=== PATIENT | female | born 1940 | race Caucasian/White ===

== ENCOUNTER 2020-09-01 16:54 | Inpatient (IN) ==
[2020-09-01] MEDS ORDERED: METOCLOPRAMIDE HCL INJ 5 MG/ML 2 ML VIAL IV ONE (17:25)
[2020-09-01] MEDS ORDERED: diphenhydrAMINE 50 MG/ML VIAL IV STA (17:25)
[2020-09-01] MEDS ORDERED: KETOROLAC TROMETHAMINE 15 MG/ML VIAL IV ONE (17:25)
[2020-09-01 18:02] LABS: Basophils # (auto) 0.04 K/uL (0-0.2); Basophils % (auto) 0.6 %; Eosinophils # (auto) 0.15 K/uL (0-0.5); Eosinophils % (auto) 2.1 %; Hematocrit (blood only) 41.1 % (37-47); Hemoglobin 13.9 g/dL (12.0-16.0); Immature Granulocytes # (auto) 0.01 K/uL (0.00-0.02); Immature Granulocytes % (auto) 0.1 %; Lymphocytes % (auto) 29.2 %; Mean Corpuscular Hgb Conc 33.8 g/dL (32-36); Mean Corpuscular Volume 94.7 fL (80-100); Mean Platelet Volume 9.1 fL (7.4-10.4); Monocytes # (auto) 0.57 K/uL (0.11-0.59); Monocytes % (auto) 7.9 %; Neutrophils # (auto) 4.31 K/uL (1.4-6.5); Neutrophils % (auto) 60.1 %; Platelet Count 285 K/uL (130-400); RDW Standard Deviation 45.5 fL (36.4-46.3); Red Blood Count 4.34 M/uL (4.2-5.4); White Blood Count 7.18 K/uL (4.8-10.8)
[2020-09-01 18:23] LABS: Alanine Aminotransferase 21 U/L (12-78); Albumin Level 4.1 gm/dl (3.4-5.0); Aspartate Aminotransferase 22 U/L (15-37); BUN Creatinine Ratio 13.8 (10-20); Blood Urea Nitrogen 13 mg/dl (7-18); Calcium 10.6 mg/dl (8.5-10.1); Carbon Dioxide 28 mmol/L (21-32); Chloride 108 mmol/L (98-107); Est GFR (African American) 67.3; Glucose 106 mg/dl (70-99); Magnesium 2.1 mg/dl (1.8-2.4); Potassium 4.6 mmol/L (3.5-5.1); Sodium 140 mmol/L (136-145)
[2020-09-01 18:33] LABS: Alkaline Phosphatase 93 U/L (45-117); Bilirubin,Total 0.7 mg/dl (0.2-1); Creatine Kinase 82 U/L (26-192); Globulin 4.2 gm/dl (2.5-4.0); Total Protein 8.3 gm/dl (6.4-8.2); Troponin I < 0.015 ng/ml (0-0.045)
--- NOTE | 2020-09-01 18:41 | CT Scan Report ---
HEAD CT NONCONTRAST CT DOSE: 1311.06 mGy.cm HISTORY: Hypertension, Headache TECHNIQUE: Multiaxial CT images of the head were performed without the use of intravenous contrast. A utomated exposure control was utilized for this study. A dose lowering technique was utilized adheri ng to the principles of ALARA. Comparison: 08/28/2018. Findings: The paranasal sinuses and mastoid air cells are clear. The calvarium and skull base are int act. There is no mass, hematoma, midline shift, acute infarct. White matter hypodensity is nonspecifi c but suggestive of microvascular ischemic change. The ventricles and sulci demonstrate mild age-rela radha involutional changes. Impression: No significant change compared to the prior study. No acute intracranial abnormality. ACT 112: Negative or not required by law. Electronically signed by: Jhony Nunez M.D. 09/01/2020 6:39 PM
--- NOTE | 2020-09-01 18:44 | XRay Report ---
XR chest 1V portable HISTORY: Hypertension COMPARISON: None. FINDINGS: The lungs are clear. The cardiac silhouette is mildly enlarged. There is a mildly tortuous thoracic aorta. No pleural effusions. No pneumothorax. Mild S-shaped scoliosis of the thoracic spine. IMPRESSION: Mild cardiomegaly. Otherwise, no acute process within the chest. ACT 112: Negative or not required by law. Electronically signed by: Jhony Nunez M.D. 09/01/2020 6:43 PM
--- NOTE | 2020-09-01 18:55 | Emergency Department Note ---
Impression & Plan Headache, Hypertensive urgency ED Provider Note Provider: Shon Carreon MD DATE OF SERVICE: 09/01/2020 CHIEF COMPLAINT: Headache, hypertension HISTORY OF PRESENT ILLNESS: Patient is a 79-year-old female presenting today stating that over the past approximately 2 days she developed a mild to moderate posterior headache. Denies any trauma or syncope. States during this time she also noticed her blood pressures been elevated. Only is been very well controlled. 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 This afternoon around 1 PM took a dose of 12.5 mg hydrochlorothiazide prescribed by him given persis tent hypertension at home. Denies any dizziness or visual change. States has had some crampy pain in her bilateral arms right worse than left. Denies any falls or significant exertion here. Denies any chest pressure, palpitations, shortness of breath. Denies any abdominal issues. Denies significant new changes with some myalgias in her legs but has some chronic issues here. Patient denies new numbness or tingling in extremities or speech issues. Patient denies other new changes. REVIEW OF SYSTEMS: A total of 10 review of systems was obtained and negative except as stated above in the HPI. PAST MEDICAL HISTORY: As noted above MEDICATIONS: Reviewed home medications with the patient. SOCIAL HISTORY: lives at home with PHYSICAL EXAM: GENERAL: alert and oriented in no acute distress on stretcher Head: normocephalic and atraumatic EYES: No injection, discharge or icterus. PERRL NECK: Trachea midline. Supple. No significant posterior midline tenderness. LUNGS: Airway patent. No retractions. Breath sounds clear with good air entry bilaterally. HEART: Regular rate and rhythm. No chest wall tenderness ABDOMEN: Soft and non-tender, without guarding or rebound. SKIN: Acyanotic, warm, dry, without rashes EXTREMITIES: Without swelling, tenderness or deformity NEUROLOGICAL: No focal deficits. No aphasia. No facial droop or slurred speech. Normal strength and tone in the extremities. Sensation to gross touch normal. EK beats minute sinus rhythm first-degree AV block. No PVC or PAC. No acute ST segment elevation noted. QTc 466. CONTINUOUS CARDIAC MONITORING: was ordered and showed a heart rate of 80s and 90s bpm in sinus rhythm first-degree AV block Patient's laboratory studies and imaging reviewed. Differential includes Benign hypertension, hypertensive emergency, cardiovascular pathology, toxicologic, pheochromocytoma, electrolyte abnor mality, renal disease, endorgan damage, as well as other pathologies. IMPRESSION/MEDICAL DECISION MAKING: Patient presents with 2 days of worsening hypertension in the setting of increasing her blood pressure medicine. Now on twice the dose of her STONE and started on hydrochlorothiazide today. Patient denies chest pressure or shortness of breath. is acutely cardiac. EKG and troponin were complete as well as a chest x-ray without significant finding. Patient does complain of some pain more in her right forearm than her left and given that she has been on some regularly active medications electrolytes were checked without significant abnormality. Not with focal neurological deficit here. Denies any dizziness. No syncope or falls or trauma reported. Low suspicion for traumatic injury and also seems atypical for CVA. CT head completed an abundance of caution without acute findings here. Not having significant infective symptoms either. Do not believe this represents meningitis or other systemic infection. Given some Toradol, Reglan, Benadryl to see if this would help with her headache symptomatologies. Renal function is stable. No evidence of rhabdomyolysis with a normal CK. Thyroid function within normal limits. Question of some component of anxiety as contributing to her blood pressure elevation given her headache. Discussed these findings with the patient. Patient should limited dizziness at the medication but her headache had improved very much. Blood pressure is trended down somewhat patient was able to ambulate okay in the room and states after discussion of possible further observation here however the patient wished to go home. Discharge paperwork was prepared however when the nurse went to discharge her, her blood pressure had climbed to around 200 systolic again I was asked to reevaluate the patient. Discussed the patient again possible further observation given her significant hypertension as well as headache symptomatologies. Patient was quite anxious about how her blood pressure is doing and difficulty going home at this point. Discussed monitoring overnight and trial of additional blood pressure medicine. We will give a small dose of labetalol intravenously here and her blood pressure did improve with this. The hospitalist was contacted. Patient later returns Covid positive on routine screening testing. Unsure if this is truly positive or just residual she states she had Covid and symptoms consistent with Covid in April and recovered. DIAGNOSIS: Headache, hypertensive urgency DISPOSITION: Hospitalist will evaluate Patient was agreeable with this plan. Past Med/Surg History Medical History (Updated 09/01/20 @ 22:48 by Shon Carreon M.D.) Hypertension Family History (System 10/28/19 @ 14:39 by Shonda Zhu) Other Family history non-contributory Social History (System 10/28/19 @ 14:39 by Shonda Zhu) Smoking Status: Never smoker Feels Safe at Home: Yes Allergies Allergies Allergy/AdvReac Type Severity Reaction Status Date / Time celecoxib [From Celebrex] Allergy Severe Difficulty Verified 09/01/20 18:29 Breathing azithromycin AdvReac Severe Gastrointestinal Verified 09/01/20 18:29 Upset ranitidine AdvReac Intermediate Hives Verified 09/01/20 18:29 Home Meds Home Medications Medication Instructions Recorded Confirmed acetaminophen [Tylenol Extra 500 mg PO Q6H PRN 08/28/18 09/01/20 Strength] esomeprazole magnesium [Nexium 20 mg PO QAM PRN 08/28/18 09/01/20 24HR] ibuprofen [Advil] 200 mg PO Q6H PRN 08/28/18 09/01/20 levocetirizine [Xyzal] 5 mg PO QAM 08/28/18 09/01/20 ramipril 10 mg PO QAM 08/28/18 09/01/20 Results & Data (ED) Vital Signs Vital Signs - 24 hr 09/01/20 17:03 09/01/20 18:01 09/01/20 18:19 Temperature 36.6 C Temperature Source Temporal Artery Scan Pulse Rate 96 H 91 H Pulse Rate [Finger] Pulse Rate from SpO2 Sensor 90 Pulse Rhythm [Finger] Pulse Strength [Finger] Respiratory Rate 20 22 Respiratory Effort / Characteristics Non-Labored Respiratory Depth Normal Respiratory Pattern Blood Pressure 215/101 H 179/99 H Blood Pressure [Left Arm] Blood Pressure [Right Arm] Blood Pressure Mean 139 125 Blood Pressure Mean [Left Arm] Blood Pressure Mean [Right Arm] Blood Pressure Position [Left Arm] Blood Pressure Position [Right Arm] Pulse Oximetry 95 95 96 Oxygen Delivery Method Room Air Room Air Room Air Sepsis Recent Fever Within 48 Hours No Sepsis New/Unexplained Change in Mental Status N/A Sepsis Action Taken by Nursing No Action Required 09/01/20 18:34 09/01/20 19:00 09/01/20 19:11 Temperature Temperature Source Pulse Rate 89 78 80 Pulse Rate [Finger] Pulse Rate from SpO2 Sensor 89 79 79 Pulse Rhythm [Finger] Pulse Strength [Finger] Respiratory Rate 16 20 25 H Respiratory Effort / Characteristics Respiratory Depth Respiratory Pattern Blood Pressure 183/94 H 179/79 H 171/90 H Blood Pressure [Left Arm] Blood Pressure [Right Arm] Blood Pressure Mean 123 112 117 Blood Pressure Mean [Left Arm] Blood Pressure Mean [Right Arm] Blood Pressure Position [Left Arm] Blood Pressure Position [Right Arm] Pulse Oximetry 97 97 97 Oxygen Delivery Method Room Air Room Air Room Air Sepsis Recent Fever Within 48 Hours Sepsis New/Unexplained Change in Mental Status Sepsis Action Taken by Nursing 09/01/20 19:40 09/01/20 19:41 09/01/20 19:45 Temperature Temperature Source Pulse Rate 82 86 83 Pulse Rate [Finger] Pulse Rate from SpO2 Sensor 84 Pulse Rhythm [Finger] Pulse Strength [Finger] Respiratory Rate 18 17 13 Respiratory Effort / Characteristics Respiratory Depth Respiratory Pattern Blood Pressure 181/144 H 205/82 H 214/102 H Blood Pressure [Left Arm] Blood Pressure [Right Arm] Blood Pressure Mean 156 123 139 Blood Pressure Mean [Left Arm] Blood Pressure Mean [Right Arm] Blood Pressure Position [Left Arm] Blood Pressure Position [Right Arm] Pulse Oximetry 96 96 95 Oxygen Delivery Method Room Air Room Air Room Air Sepsis Recent Fever Within 48 Hours Sepsis New/Unexplained Change in Mental Status Sepsis Action Taken by Nursing 09/01/20 19:46 09/01/20 19:51 09/01/20 19:53 Temperature Temperature Source Pulse Rate 80 Pulse Rate [Finger] 86 Pulse Rate from SpO2 Sensor 80 Pulse Rhythm [Finger] Regular Pulse Strength [Finger] Normal Respiratory Rate 20 18 Respiratory Effort / Characteristics Non-Labored Spontaneous Respiratory Depth Normal Respiratory Pattern Regular Blood Pressure 188/131 H Blood Pressure [Left Arm] 205/82 H 192/104 H Blood Pressure [Right Arm] 214/102 H Blood Pressure Mean 150 Blood Pressure Mean [Left Arm] 123 133 Blood Pressure Mean [Right Arm] 139 Blood Pressure Position [Left Arm] Sitting Blood Pressure Position [Right Arm] Sitting Pulse Oximetry 96 96 Oxygen Delivery Method Room Air Sepsis Recent Fever Within 48 Hours Sepsis New/Unexplained Change in Mental Status Sepsis Action Taken by Nursing 09/01/20 20:00 09/01/20 20:17 09/01/20 20:29 Temperature Temperature Source Pulse Rate 77 78 72 Pulse Rate [Finger] Pulse Rate from SpO2 Sensor 77 79 72 Pulse Rhythm [Finger] Pulse Strength [Finger] Respiratory Rate 16 20 18 Respiratory Effort / Characteristics Non-Labored Spontaneous Respiratory Depth Normal Respiratory Pattern Regular Blood Pressure 175/97 H 182/114 H Blood Pressure [Left Arm] Blood Pressure [Right Arm] Blood Pressure Mean 123 136 Blood Pressure Mean [Left Arm] Blood Pressure Mean [Right Arm] Blood Pressure Position [Left Arm] Blood Pressure Position [Right Arm] Pulse Oximetry 97 97 97 Oxygen Delivery Method Sepsis Recent Fever Within 48 Hours Sepsis New/Unexplained Change in Mental Status Sepsis Action Taken by Nursing 09/01/20 20:30 09/01/20 20:42 09/01/20 20:46 Temperature Temperature Source Pulse Rate 72 67 66 Pulse Rate [Finger] Pulse Rate from SpO2 Sensor 71 67 65 Pulse Rhythm [Finger] Pulse Strength [Finger] Respiratory Rate 15 13 27 H Respiratory Effort / Characteristics Respiratory Depth Respiratory Pattern Blood Pressure 203/75 H 152/86 H 177/75 H Blood Pressure [Left Arm] Blood Pressure [Right Arm] Blood Pressure Mean 117 108 109 Blood Pressure Mean [Left Arm] Blood Pressure Mean [Right Arm] Blood Pressure Position [Left Arm] Blood Pressure Position [Right Arm] Pulse Oximetry 97 97 97 Oxygen Delivery Method Room Air Room Air Sepsis Recent Fever Within 48 Hours Sepsis New/Unexplained Change in Mental Status Sepsis Action Taken by Nursing 09/01/20 21:00 09/01/20 21:15 09/01/20 21:30 Temperature Temperature Source Pulse Rate 66 69 65 Pulse Rate [Finger] Pulse Rate from SpO2 Sensor 66 69 65 Pulse Rhythm [Finger] Pulse Strength [Finger] Respiratory Rate 16 19 16 Respiratory Effort / Characteristics Respiratory Depth Respiratory Pattern Blood Pressure 177/61 H 185/68 H 145/73 H Blood Pressure [Left Arm] Blood Pressure [Right Arm] Blood Pressure Mean 99 107 97 Blood Pressure Mean [Left Arm] Blood Pressure Mean [Right Arm] Blood Pressure Position [Left Arm] Blood Pressure Position [Right Arm] Pulse Oximetry 95 96 96 Oxygen Delivery Method Room Air Room Air Sepsis Recent Fever Within 48 Hours Sepsis New/Unexplained Change in Mental Status Sepsis Action Taken by Nursing Laboratory Data Result diagrams: 09/01/20 17:53 09/01/20 17:53 Lab Results 09/01/20 09/01/20 09/01/20 Range/Units 17:53 17:53 20:27 WBC 7.18 (4.8-10.8) K/uL RBC 4.34 (4.2-5.4) M/uL Hgb 13.9 (12.0-16.0) g/dL Hct 41.1 (37-47) % MCV 94.7 (80-100) fL MCH 32.0 (25-34) pg MCHC 33.8 (32-36) g/dL RDW Std Deviation 45.5 (36.4-46.3) fL RDW Coeff of Augustine 13.0 (11.5-14.5) % Plt Count 285 (130-400) K/uL MPV 9.1 (7.4-10.4) fL Immature Gran % (Auto) 0.1 % Neut % (Auto) 60.1 % Lymph % (Auto) 29.2 % Ness % (Auto) 7.9 % Eos % (Auto) 2.1 % Baso % (Auto) 0.6 % Neut # (Auto) 4.31 (1.4-6.5) K/uL Lymph # (Auto) 2.10 (1.2-3.4) K/uL Ness # (Auto) 0.57 (0.11-0.59) K/uL Eos # (Auto) 0.15 (0-0.5) K/uL Baso # (Auto) 0.04 (0-0.2) K/uL Immature Gran # (Auto) 0.01 (0.00-0.02) K/uL Sodium 140 (136-145) mmol/L Potassium 4.6 (3.5-5.1) mmol/L Chloride 108 H (98-107) mmol/L Carbon Dioxide 28 (21-32) mmol/L Anion Gap 4.0 (3-11) BUN 13 (7-18) mg/dl Creatinine 0.93 (0.6-1.2) mg/dl Est Cr Clr Drug Dosing 50.0 ml/min Est GFR ( Amer) 67.3 Est GFR (Non-Af Amer) 58.0 BUN/Creatinine Ratio 13.8 (10-20) Glucose 106 H (70-99) mg/dl Calcium 10.6 H (8.5-10.1) mg/dl Magnesium 2.1 (1.8-2.4) mg/dl Total Bilirubin 0.7 (0.2-1) mg/dl AST 22 (15-37) U/L ALT 21 (12-78) U/L Alkaline Phosphatase 93 (45-117) U/L Total Creatine Kinase 82 (26-192) U/L Troponin I < 0.015 (0-0.045) ng/ml Total Protein 8.3 H (6.4-8.2) gm/dl Albumin 4.1 (3.4-5.0) gm/dl Globulin 4.2 H (2.5-4.0) gm/dl Albumin/Globulin Ratio 1.0 (0.9-2) TSH 1.960 (0.300-4.500) uIu/ml Urine Color Yellow Urine Appearance Clear (Clear) Urine pH 6.0 (4.5-7.5) Ur Specific [place] 1.011 (1.000-1.030) Urine Protein Negative (Negative) Urine Glucose (UA) Negative (Negative) Urine Ketones Negative (Negative) Urine Blood 1+ H (Negative) Urine Nitrite Negative (Negative) Urine Bilirubin Negative (Negative) Urine Urobilinogen Negative (Negative) Ur Leukocyte Esterase Trace H (Negative) Urine WBC (Auto) 1-5 (0-5) /hpf Urine RBC (Auto) 0-4 (0-4) /hpf U Hyaline Cast (Auto) 1-5 (0-5) /lpf U Epithel Cells (Auto) >30 H (0-5) /lpf Urine Bacteria (Auto) Negative (Negative) COVID-19 Eval Order SARS-CoV-2 (PCR) (Negative) Influenza Type A (PCR) (Neg) Influenza Type B (PCR) (Neg) RSV (RT-PCR) (Neg) 09/01/20 09/01/20 Range/Units 20:44 20:44 WBC (4.8-10.8) K/uL RBC (4.2-5.4) M/uL Hgb (12.0-16.0) g/dL Hct (37-47) % MCV (80-100) fL MCH (25-34) pg MCHC (32-36) g/dL RDW Std Deviation (36.4-46.3) fL RDW Coeff of Augustine (11.5-14.5) % Plt Count (130-400) K/uL MPV (7.4-10.4) fL Immature Gran % (Auto) % Neut % (Auto) % Lymph % (Auto) % Ness % (Auto) % Eos % (Auto) % Baso % (Auto) % Neut # (Auto) (1.4-6.5) K/uL Lymph # (Auto) (1.2-3.4) K/uL Ness # (Auto) (0.11-0.59) K/uL Eos # (Auto) (0-0.5) K/uL Baso # (Auto) (0-0.2) K/uL Immature Gran # (Auto) (0.00-0.02) K/uL Sodium (136-145) mmol/L Potassium (3.5-5.1) mmol/L Chloride (98-107) mmol/L Carbon Dioxide (21-32) mmol/L Anion Gap (3-11) BUN (7-18) mg/dl Creatinine (0.6-1.2) mg/dl Est Cr Clr Drug Dosing ml/min Est GFR ( Amer) Est GFR (Non-Af Amer) BUN/Creatinine Ratio (10-20) Glucose (70-99) mg/dl Calcium (8.5-10.1) mg/dl Magnesium (1.8-2.4) mg/dl Total Bilirubin (0.2-1) mg/dl AST (15-37) U/L ALT (12-78) U/L Alkaline Phosphatase (45-117) U/L Total Creatine Kinase (26-192) U/L Troponin I (0-0.045) ng/ml Total Protein (6.4-8.2) gm/dl Albumin (3.4-5.0) gm/dl Globulin (2.5-4.0) gm/dl Albumin/Globulin Ratio (0.9-2) TSH (0.300-4.500) uIu/ml Urine Color Urine Appearance (Clear) Urine pH (4.5-7.5) Ur Specific [place] (1.000-1.030) Urine Protein (Negative) Urine Glucose (UA) (Negative) Urine Ketones (Negative) Urine Blood (Negative) Urine Nitrite (Negative) Urine Bilirubin (Negative) Urine Urobilinogen (Negative) Ur Leukocyte Esterase (Negative) Urine WBC (Auto) (0-5) /hpf Urine RBC (Auto) (0-4) /hpf U Hyaline Cast (Auto) (0-5) /lpf U Epithel Cells (Auto) (0-5) /lpf Urine Bacteria (Auto) (Negative) COVID-19 Eval Order CovFluRsv at [facility] SARS-CoV-2 (PCR) POSITIVE A* (Negative) Influenza Type A (PCR) Negative (Neg) Influenza Type B (PCR) Negative (Neg) RSV (RT-PCR) Negative (Neg) Administered Medications Discontinued Medications Diphenhydramine HCl (Diphenhydramine 50 Mg/Ml Vial) 25 mg IV NOW STA Stop: 09/01/20 17:26 Last Admin: 09/01/20 18:11 Dose: 25 mg Documented by: [id number] Ketorolac Tromethamine (Ketorolac Tromethamine 15 Mg/Ml Vial) 10 mg IV NOW ONE Stop: 09/01/20 17:26 Last Admin: 09/01/20 18:10 Dose: 10 mg Documented by: [id number] Labetalol HCl (Labetalol Hcl Iv 5 Mg/Ml 20ml) 10 mg IV NOW STA Stop: 09/01/20 19:59 Last Admin: 09/01/20 20:35 Dose: 10 mg Documented by: [id number] Cosigned by: [id number] Metoclopramide HCl (Metoclopramide Hcl Inj 5 Mg/Ml 2 Ml Vial) 5 mg IV ONE ONE Stop: 09/01/20 17:26 Last Admin: 09/01/20 18:09 Dose: 5 mg Documented by: [id number] Imaging Data Radiologist's Impression: Chest X-Ray 09/01/20 17:26 XR chest 1V portable HISTORY: Hypertension COMPARISON: None. FINDINGS: The lungs are clear. The cardiac silhouette is mildly enlarged. There is a mildly tortuous thoracic aorta. No pleural effusions. No pneumothorax. Mild S-shaped scoliosis of the thoracic spine. IMPRESSION: Mild cardiomegaly. Otherwise, no acute process within the chest. ACT 112: Negative or not required by law. Electronically signed by: Jhony Nunez M.D. 09/01/2020 6:[address] 09/01/20 17:[address] DOSE: 1311.06 mGy.cm HISTORY: Hypertension, Headache TECHNIQUE: Multiaxial CT images of the head were performed without the use of intravenous contrast. Automated exposure control was utilized for this study. A dose lowering technique was utilized adhering to the principles of ALARA. Comparison: 08/28/2018. Findings: The paranasal sinuses and mastoid air cells are clear. The calvarium and skull base are intact. There is no mass, hematoma, midline shift, acute infarct. White matter hypodensity is nonspecific but suggestive of microvascular ischemic change. The ventricles and sulci demonstrate mild age-related involuti onal changes. Impression: No significant change compared to the prior study. No acute intracranial abnormality. ACT 112: Negative or not required by law. Electronically signed by: Jhony Nunez M.D. 09/01/2020 6:39 PM Discharge Plan Visit Data Chief Complaint: Hypertension Stated Complaint: HIGH BLOOD PRESSURE ED Provider: Shon Carreon Discharge Problem: Headache, Hypertensive urgency Patient Disposition: Being Evaluated by Hospitalist Prescriptions Prescriptions: No Action acetaminophen [Tylenol Extra Strength] 500 mg Tablet 500 mg PO Q6H PRN (Reason: Pain) RF: 0 ibuprofen [Advil] 200 mg Tablet 200 mg PO Q6H PRN (Reason: Pain) RF: 0 ramipril 10 mg capsule 10 mg PO QAM RF: 0 levocetirizine [Xyzal] 5 mg Tablet 5 mg PO QAM RF: 0 Nexium 24HR 20 mg Tablet,Delayed Release (Dr/Ec) 20 mg PO QAM PRN (Reason: Heartburn) RF: 0 Referrals Referrals: Natalia Carlos DO [Primary Care Provider] - Discharge Problem: Headache Qualifiers: Headache type: unspecified Headache chronicity pattern: acute headache Intractability: intractable Qualified Code(s): R51.9 - Headache, unspecified
[2020-09-01] MEDS ORDERED: LABETALOL HCL IV 5 MG/ML 20ML IV STA (19:58)
[2020-09-01 20:48] LABS: Appearance Urine Clear (Clear); Bacteria Urine Automated Negative (Negative); Bilirubin Urine Negative (Negative); Blood Urine 1+ (Negative); Color Urine Yellow; Epithelial Cell Urine Auto >30 /lpf (0-5); Glucose Urine UA Negative (Negative); Ketones Urine Negative (Negative); Leukocyte Esterase Urine Trace (Negative); Nitrite Urine Negative (Negative); Protein Urine Negative (Negative); RBC Urine Automated 0-4 /hpf (0-4); Specific Gravity Urine 1.011 (1.000-1.030); Urobilinogen Urine Negative (Negative)
[2020-09-01 21:39] LABS: Influenza A virus by PCR Negative (Neg); Influenza B virus by PCR Negative (Neg); RSV by PCR Negative (Neg)
[2020-09-01 21:49] LABS: SARS CoV2 RNA(COVID-19) InHosp POSITIVE (Negative)
--- NOTE | 2020-09-02 00:09 | History and Physical Report ---
DATE OF ADMISSION: 09/01/2020 CHIEF COMPLAINT: Headaches and elevated blood pressure. HISTORY OF PRESENT ILLNESS: This is an 79-year-old female with past medical history significant for hyperlipidemia, hypertension, GERD, presents with ongoing headaches and elevated blood pressure. 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 But her blood pressure did not improve much and also last 2 days she is having headache in the back of the head, about moderate in severity, which prompted her to come to the ER. In the ER after getting Toradol, labetalol and Benadryl, her blood pressure is improved and her headaches are improved. But as ER started to discharge her home again the blood pressure went to 200, so we are called for admission. Currently, blood pressure is okay in 150s range, and her COVID test came back positive, though she is asymptomatic. She says she was diagnosed with COVID in April. At that time, she had loss of appetite, loss of sense of smell and taste and mild abdominal discomfort, but she did not really get sick. This time she does not know how she got it. She lives with her . She does not have any shortness of breath, no cough, no nausea, no vomiting, no loss of sense of smell or taste. Appetite is good. No blurred vision, no double vision, no earache, no runny nose, no sore throat, no difficulty swallowing. No abdominal pain. Normal bowel and bladder movements. Currently resting comfortably and hemodynamically stable. ALLERGIES: CELEBREX, AMOXICILLIN, ERYTHROMYCIN, ____ SULFA ANTIBIOTICS. PAST MEDICAL HISTORY: As mentioned above. PAST SURGICAL HISTORY: No surgical history in file. MEDICATIONS: The patient is on Tylenol 650 mg p.o. q. 4 hours p.r.n., omeprazole 20 mg p.o. a.m., ibuprofen 200 mg q. 6 hours p.r.n., levocetirizine 5 mg p.o. a.m., ramipril 10 mg p.o. a.m. FAMILY HISTORY: Significant for brother has arthritis, hypertension. Father had lung cancer and heart disease. Mother has diabetes, heart attack, hypertension. Daughter has Hodgkins disease. SOCIAL HISTORY: . No smoking, no alcohol, no drug use. REVIEW OF SYMPTOMS: As per HPI. Rest of the review of systems negative. PHYSICAL EXAMINATION: GENERAL: The patient is of moderate build, not in acute distress. VITAL SIGNS: Temperature 36.6, pulse 70, respiratory rate 14, blood pressure 154/95, oxygen 95% on room air. HEENT: Pupils equal, round, reactive to light. Oral mucosa moist. NECK: No JVD, no neck masses. CARDIOVASCULAR: S1, S2 heard, regular rate and rhythm, no murmur, no gallop. RESPIRATORY SYSTEM: Normal AP diameter. No accessory muscle use. No wheezing, no crackles. ABDOMEN: Soft, bowel sounds present, nontender. No distention. CENTRAL NERVOUS SYSTEM: Cranial nerves II-XII grossly intact. Nonfocal. EXTREMITIES: No edema, no erythema. LABORATORY DATA: WBC 7.1, hemoglobin 13.9, hematocrit 41.1, platelets 285. Sodium 140, potassium 4.6, chloride 108, CO2 28, BUN 13, creatinine 0.9, serum glucose 106, calcium 10.6, magnesium 2.1, total bilirubin 0.7, AST 22, ALT 21, alkaline phosphatase 93, total creatinine kinase 82. Troponin I less than 0.015. TSH 1.9. Urinalysis, leukocyte esterase. SARS-CoV-2 PCR positive. IMAGING: CT of the head, no acute findings. Chest x-ray, no acute process of the chest. EKG: Sinus rhythm with first degree AV block at the rate of 85, no acute ST changes seen. ASSESSMENT AND PLAN: This is an 79-year-old female who presents with ongoing headache and elevated blood pressure and found to be COVID positive. 1. Headache, elevated blood pressure. Headache going on for last 2 days, blood pressure is elevated since last 4 days. Outpatient ramipril dose was doubled and started on hydrochlorothiazide but was not getting better. Hypertensive urgency, we will place her on labetalol p.r.n. Continue home medications. CT of the head was okay. Pain control for headache. Consult cardiology in a.m. for further recommendations. 2. COVID positive, asymptomatic. She also had COVID in April. Saturating fine on room air. We will follow the inflammatory markers. 3. Headaches. possibly from Covid and HTN. Pain control. 4. Gastroesophageal reflux disease. Continue omeprazole. 5. Hyperlipidemia, currently not on any medications. 6. Deep venous thrombosis prophylaxis with Lovenox. 6. Disposition: Admit to tele floor. Expect to discharge home and follow with family doctor. Level 1 full code. 7. Mild hypercalcemia. We will follow the repeat labs in a.m. MTDD
[2020-09-02] MEDS ORDERED: ONDANSETRON INJ 2 MG/ML 2 ML VIAL IV PRN (00:17)
[2020-09-02] MEDS ORDERED: POLYETHYLENE (MIRALAX) 17 GM PACK PO PRN (00:17)
[2020-09-02] MEDS ORDERED: NITROGLYCERIN SL 0.4 MG/TAB TAB SL PRN (00:17)
[2020-09-02] MEDS ORDERED: PANTOprazole 40 MG TAB PO PRN (00:44)
[2020-09-02] MEDS: LABETALOL HCL IV 5 MG/ML 20ML IV PRN ×3 (01:29→11:29)
[2020-09-02 05:53] LABS: Basophils # (auto) 0.04 K/uL (0-0.2); Basophils % (auto) 0.7 %; Eosinophils # (auto) 0.14 K/uL (0-0.5); Eosinophils % (auto) 2.4 %; Hematocrit (blood only) 37.3 % (37-47); Hemoglobin 12.8 g/dL (12.0-16.0); Immature Granulocytes # (auto) 0.01 K/uL (0.00-0.02); Immature Granulocytes % (auto) 0.2 %; Lymphocytes # (auto) 1.86 K/uL (1.2-3.4); Lymphocytes % (auto) 31.3 %; Mean Corpuscular Hemoglobin 32.4 pg (25-34); Mean Corpuscular Hgb Conc 34.3 g/dL (32-36); Mean Corpuscular Volume 94.4 fL (80-100); Mean Platelet Volume 9.2 fL (7.4-10.4); Monocytes # (auto) 0.62 K/uL (0.11-0.59); Monocytes % (auto) 10.4 %; Neutrophils # (auto) 3.28 K/uL (1.4-6.5); Platelet Count 282 K/uL (130-400); RDW Coefficient of Variation 13.1 % (11.5-14.5); RDW Standard Deviation 45.7 fL (36.4-46.3); Red Blood Count 3.95 M/uL (4.2-5.4); White Blood Count 5.95 K/uL (4.8-10.8)
[2020-09-02 06:06] LABS: D Dimer 1720 ug/L FEU (0-500)
[2020-09-02] MEDS: ACETAMINOPHEN 325 MG TAB PO PRN ×2 (06:27→10:38)
[2020-09-02 06:43] LABS: Blood Urea Nitrogen 16 mg/dl (7-18); C Reactive Protein 0.72 mg/dl (0-0.29); Calcium 9.2 mg/dl (8.5-10.1); Carbon Dioxide 30 mmol/L (21-32); Chloride 109 mmol/L (98-107); Creatinine Clr Calc Pharmacy 52.6 ml/min; Est GFR (Non-African American) 64.7; Ferritin 103.7 ng/ml (8-388); Glucose 99 mg/dl (70-99); Potassium 3.7 mmol/L (3.5-5.1); Sodium 141 mmol/L (136-145); Troponin I < 0.015 ng/ml (0-0.045)
[2020-09-02] MEDS ORDERED: CETIRIZINE HCL 10 MG TABLET PO SCH (09:00)
[2020-09-02] MEDS ORDERED: ENALAPRIL MALEATE 10 MG TAB PO SCH (09:00)
[2020-09-02] MEDS ORDERED: ENOXAPARIN INJ 40 MG/0.4 ML SYR SQ SCH (09:00)
[2020-09-02] MEDS ORDERED: hydroCHLOROthiazide 25 MG TAB PO SCH (09:00)
--- NOTE | 2020-09-02 12:17 | Cardiology Consultation ---
Date of Consultation September 02, 2020 Assessment & Plan (1) Hypertensive urgency: Patient is a an 79-year-old female with history of longstanding labile hypertension. Patient with prior difficulties with multiple medications on treatment. Notes takes ramipril 10 mg once daily and hydrochlorothiazide 3 days/week 12.5 mg. She presents now with elevated blood pressures and headache. She has responded to IV labetalol since admission. She remains reluctant to change medications No evidence of acute coronary syndrome or renal decline. EKGs without change Laboratory studies notable for positive Covid testing though asymptomatic question whether this is contributing to headache complaints. Recommendations: Resume ramipril 10 mg twice per day on discharge, continue hydrochlorothiazide. Add amlodipine 5 mg daily first dose now Expect patient will demand to be discharged later Continue Tylenol for headache and caution patient regarding future symptoms of Covid (2) Headache: History of Present Illness Reason for Consultation: Hypertension, headache Requesting Physician: Dr. Wilson Attending Physician: Adi Paul MD History of Present Illness Patient is an 79-year-old female with ongoing issues include 1. Longstanding hypertension with labile blood pressures 2. Dyslipidemia Patient is referred after presenting to the emergency room complaining of headache relieved with Tylenol but persistent times several days and elevated blood pressures at home. She notes having taken usual medications as prescribed. Notes no cardiac or noncardiac complaints and specifically denies fevers chills or cough. Did experience Covid infection manifesting as positive testing and loss of sense of smell and taste in April. No recent fevers or chills. No bleeding difficulties. No acute neurologic complaints. Appetite and weight have been stable. No change in exercise capacity or tolerance. Continues to have difficulty with peripheral varicosities. No edema. No difficulty sleeping at night. On presentation to the emergency room patient was hypertensive and complaining of headache. Laboratory testing also revealed positive Covid testing. Since admission she is received IV labetalol for blood pressure control and Toradol for headache. Blood pressure slightly improved. Allergies Allergy/AdvReac Type Severity Reaction Status Date / Time celecoxib [From Celebrex] Allergy Severe Difficulty Verified 09/01/20 18:29 Breathing azithromycin AdvReac Severe Gastrointestinal Verified 09/01/20 18:29 Upset ranitidine AdvReac Intermediate Hives Verified 09/01/20 18:29 Home Medications Medication Instructions Recorded Confirmed Type acetaminophen [Tylenol Extra 500 mg PO Q6H PRN 08/28/18 09/01/20 History Strength] esomeprazole magnesium [Nexium 20 mg PO QAM PRN 08/28/18 09/01/20 History 24HR] ibuprofen [Advil] 200 mg PO Q6H PRN 08/28/18 09/01/20 History levocetirizine [Xyzal] 5 mg PO QAM 08/28/18 09/01/20 History ramipril 10 mg PO QAM 08/28/18 09/01/20 History Patient History Medical History Hypertension Family History Other Family history non-contributory Social History Smoking Status: Never smoker Hx Alcohol Use: No Hx Substance Use: No Preferred Language: [place] Communication Ability: Effective Privacy Specialist Required: No Beliefs That Will Affect Care: None Current Living Situation: Spouse Other Information That Helps Us Care for You: No Feels Safe at Home: Yes Safety Concerns: Feels Safe At This Time Assistive Devices: Denture - Upper, Denture - Lower and Glasses Review of Systems Review of Systems: All systems reviewed & are unremarkable except as noted in HPI & below Physical Exam Constitutional: WD/WN, vitals as above Eyes: PERRL, conjunctivae normal, anicteric sclerae ENMT: external ear and nose normal, oropharynx normal Neck: trachea midline, no thyromegaly Respiratory: normal respiratory effort, lungs clear to auscultation Cardiovascular: Rate/Rhythm: regular rate and regular rhythm Heart Sounds: normal S1 and normal S2; no gallop and no murmur Palpation: normal PMI Vessels: normal carotid upstroke and radial pulses present; no JVD and no carotid bruit Extremities: no edema Gastrointestinal (Abdomen): normal bowel sounds, soft, nontender, no hepatosplenomegaly Musculoskeletal: no cyanosis or clubbing, extremities motor strength 5/5 Diffuse lower extremity superficial varicosities present Skin: no rashes, warm and dry Neurologic: PERRL, EOMI, accommodation nl, no face palsy, no dysarthria Psychiatric: A+Ox3, euthymic affect Results & Data ([place]) Vital Signs (Past 12 Hours) Vital Signs Temp Pulse Pulse Resp BP BP Pulse Ox 09/02/20 11:25 36.9 C 68 18 176/71 H 95 09/02/20 10:34 69 167/71 H 09/02/20 08:00 73 09/02/20 07:46 36.6 C 60 18 174/74 H 96 09/02/20 06:15 188/76 H 09/02/20 05:49 206/77 H 09/02/20 04:21 36.6 C 70 20 147/79 H 97 09/02/20 02:13 58 L 18 155/77 H 09/02/20 01:18 186/74 H 09/02/20 00:43 67 09/02/20 00:24 36.6 C 81 20 175/88 H 96 09/02/20 00:17 36.6 C 81 20 175/88 H 174/82 H 96 Laboratory Results Laboratory Results - last 24 hr 09/01/20 09/01/20 09/01/20 17:53 17:53 20:27 WBC 7.18 RBC 4.34 Hgb 13.9 Hct 41.1 MCV 94.7 MCH 32.0 MCHC 33.8 RDW Std Deviation 45.5 RDW Coeff of [place] 13.0 Plt Count 285 MPV 9.1 Immature Gran % (Auto) 0.1 Neut % (Auto) 60.1 Lymph % (Auto) 29.2 [place] % (Auto) 7.9 Eos % (Auto) 2.1 Baso % (Auto) 0.6 Neut # (Auto) 4.31 Lymph # (Auto) 2.10 [place] # (Auto) 0.57 Eos # (Auto) 0.15 Baso # (Auto) 0.04 Immature Gran # (Auto) 0.01 D-Dimer Sodium 140 Potassium 4.6 Chloride 108 H Carbon Dioxide 28 Anion Gap 4.0 BUN 13 Creatinine 0.93 Est Cr Clr Drug Dosing 50.0 Est GFR ( Amer) 67.3 Est GFR (Non-Af Amer) 58.0 BUN/Creatinine Ratio 13.8 Glucose 106 H Calcium 10.6 H Magnesium 2.1 Ferritin Total Bilirubin 0.7 AST 22 ALT 21 Alkaline Phosphatase 93 Total Creatine Kinase 82 Troponin I < 0.015 C-Reactive Protein Total Protein 8.3 H Albumin 4.1 Globulin 4.2 H Albumin/Globulin Ratio 1.0 TSH 1.960 Urine Color Yellow Urine Appearance Clear Urine pH 6.0 Ur Specific [place] 1.011 Urine Protein Negative Urine Glucose (UA) Negative Urine Ketones Negative Urine Blood 1+ H Urine Nitrite Negative Urine Bilirubin Negative Urine Urobilinogen Negative Ur Leukocyte Esterase Trace H Urine WBC (Auto) 1-5 Urine RBC (Auto) 0-4 U Hyaline Cast (Auto) 1-5 U Epithel Cells (Auto) >30 H Urine Bacteria (Auto) Negative COVID-19 Eval Order SARS-CoV-2 (PCR) Influenza Type A (PCR) Influenza Type B (PCR) RSV (RT-PCR) 09/01/20 09/01/20 09/02/20 20:44 20:44 05:31 WBC RBC Hgb Hct MCV MCH MCHC RDW Std Deviation RDW Coeff of [place] Plt Count MPV Immature Gran % (Auto) Neut % (Auto) Lymph % (Auto) [place] % (Auto) Eos % (Auto) Baso % (Auto) Neut # (Auto) Lymph # (Auto) [place] # (Auto) Eos # (Auto) Baso # (Auto) Immature Gran # (Auto) D-Dimer 1720 H* Sodium Potassium Chloride Carbon Dioxide Anion Gap BUN Creatinine Est Cr Clr Drug Dosing Est GFR ( Amer) Est GFR (Non-Af Amer) BUN/Creatinine Ratio Glucose Calcium Magnesium Ferritin Total Bilirubin AST ALT Alkaline Phosphatase Total Creatine Kinase Troponin I C-Reactive Protein Total Protein Albumin Globulin Albumin/Globulin Ratio TSH Urine Color Urine Appearance Urine pH Ur Specific [place] Urine Protein Urine Glucose (UA) Urine Ketones Urine Blood Urine Nitrite Urine Bilirubin Urine Urobilinogen Ur Leukocyte Esterase Urine WBC (Auto) Urine RBC (Auto) U Hyaline Cast (Auto) U Epithel Cells (Auto) Urine Bacteria (Auto) COVID-19 Eval Order CovFluRsv at [facility] SARS-CoV-2 (PCR) POSITIVE A* Influenza Type A (PCR) Negative Influenza Type B (PCR) Negative RSV (RT-PCR) Negative 09/02/20 09/02/20 05:31 05:31 WBC 5.95 RBC 3.95 L Hgb 12.8 Hct 37.3 MCV 94.4 MCH 32.4 MCHC 34.3 RDW Std Deviation 45.7 RDW Coeff of [place] 13.1 Plt Count 282 MPV 9.2 Immature Gran % (Auto) 0.2 Neut % (Auto) 55.0 Lymph % (Auto) 31.3 [place] % (Auto) 10.4 Eos % (Auto) 2.4 Baso % (Auto) 0.7 Neut # (Auto) 3.28 Lymph # (Auto) 1.86 [place] # (Auto) 0.62 H Eos # (Auto) 0.14 Baso # (Auto) 0.04 Immature Gran # (Auto) 0.01 D-Dimer Sodium 141 Potassium 3.7 D Chloride 109 H Carbon Dioxide 30 Anion Gap 2.0 L BUN 16 Creatinine 0.85 Est Cr Clr Drug Dosing 52.6 Est GFR ( Amer) 75.0 Est GFR (Non-Af Amer) 64.7 BUN/Creatinine Ratio 19.0 Glucose 99 Calcium 9.2 Magnesium 2.0 Ferritin 103.7 Total Bilirubin AST ALT Alkaline Phosphatase Total Creatine Kinase Troponin I < 0.015 C-Reactive Protein 0.72 H Total Protein Albumin Globulin Albumin/Globulin Ratio TSH Urine Color Urine Appearance Urine pH Ur Specific [place] Urine Protein Urine Glucose (UA) Urine Ketones Urine Blood Urine Nitrite Urine Bilirubin Urine Urobilinogen Ur Leukocyte Esterase Urine WBC (Auto) Urine RBC (Auto) U Hyaline Cast (Auto) U Epithel Cells (Auto) Urine Bacteria (Auto) COVID-19 Eval Order SARS-CoV-2 (PCR) Influenza Type A (PCR) Influenza Type B (PCR) RSV (RT-PCR) (1) Headache Headache chronicity pattern: acute headache Headache type: unspecified Intractability: intractable Qualified Code(s): R51.9 - Headache, unspecified
[2020-09-02] MEDS ORDERED: amLODIPine BESYLATE 5 MG TAB PO SCH (12:45)
[2020-09-02] MEDS ORDERED: OPTIRAY 350 500ml IV ONE (14:42)
--- NOTE | 2020-09-02 14:49 | CT Scan Report ---
CT ANGIOGRAM OF THE CHEST CLINICAL HISTORY: Atypical chest pain. Shortness of breath. Possible pulmonary embolism. COVID POSITI VE PATIENT COMPARISON STUDY: Chest x-ray dated 09/01/2020 TECHNIQUE: Following the IV administration of 89 mL of Optiray, CT angiogram of the thorax was perfor med from the thoracic inlet to the lung bases utilizing the pulmonary embolus protocol. Images are re viewed in the axial, sagittal, and coronal planes. IV contrast was administered without complication. MIP imaging was performed. A dose lowering technique was utilized adhering to the principles of ALA RA. CT DOSE: 417.48 mGycm FINDINGS: No pathologically enlarged axillary mediastinal or hilar lymph nodes were visualized. The ascending thoracic aorta measures 35 mm. No intimal flaps are visualized There were no pulmonary artery filling defects to indicate acute pulmonary embolism. No pleural effusions are visualized. There is no lobar consolidation. There is mild subpleural reticulation. There are basilar atelectatic changes. IMPRESSION: 1. No evidence of acute pulmonary embolism 2. No evidence of focal pulmonary consolidation 2. No evidence of pathologic adenopathy ACT 112: Negative or not required by law. Electronically signed by: Jose Diana M.D. 09/02/2020 2:48 PM
--- NOTE | 2020-09-02 15:19 | Electrocardiogram Report ---
Test Reason : Blood Pressure : / mmHG Vent. Rate : 085 BPM Atrial Rate : 085 BPM P-R Int : 226 ms QRS Dur : 084 ms QT Int : 392 ms P-R-T Axes : 025 -16 025 degrees QTc Int : 466 ms Sinus rhythm with 1st degree A-V block Minimal voltage criteria for LVH, may be normal variant Poor R wave progression, consider anterior [place] vs. lead placement vs. LVH Abnormal ECG When compared with ECG of 28-AUG-2018 16:11, No significant change was found Confirmed by Cristi Alvarez ([id number]) on 09/02/2020 3:19:50 PM Referred By: REFERRED SELF Confirmed By:Franck Alvarez
--- NOTE | 2020-09-03 08:04 | Discharge Summary ---
Date of Service September 03, 2020 Admission HPI Per Admitting Provider This is an 79-year-old female with past medical history significant for hyperlipidemia, hypertension, GERD, presents with ongoing headaches and elevated blood pressure. 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 But her blood pressure did not improve much and also last 2 days she is having headache in the back of the head, about moderate in severity, which prompted her to come to the ER. In the ER after getting Toradol, labetalol and Benadryl, her blood pressure is improved and her headaches are improved. But as ER started to discharge her home again the blood pressure went to 200, so we are called for admission. Currently, blood pressure is okay in 150s range, and her COVID test came back positive, though she is asymptomatic. She says she was diagnosed with COVID in April. At that time, she had loss of appetite, loss of sense of smell and taste and mild abdominal discomfort, but she did not really get sick. This time she does not know how she got it. She lives with her . She does not have any shortness of breath, no cough, no nausea, no vomiting, no loss of sense of smell or taste. Appetite is good. No blurred vision, no double vision, no earache, no runny nose, no sore throat, no difficulty swallowing. No abdominal pain. Normal bowel and bladder movements. Currently resting comfortably and hemodynamically stable. Admission Exam Per Admitting Provider GENERAL: The patient is of moderate build, not in acute distress. VITAL SIGNS: Temperature 36.6, pulse 70, respiratory rate 14, blood pressure 154/95, oxygen 95% on room air. HEENT: Pupils equal, round, reactive to light. Oral mucosa moist. NECK: No JVD, no neck masses. CARDIOVASCULAR: S1, S2 heard, regular rate and rhythm, no murmur, no gallop. RESPIRATORY SYSTEM: Normal AP diameter. No accessory muscle use. No wheezing, no crackles. ABDOMEN: Soft, bowel sounds present, nontender. No distention. CENTRAL NERVOUS SYSTEM: Cranial nerves II-XII grossly intact. Nonfocal. EXTREMITIES: No edema, no erythema. Principal Diagnosis Hypertensive urgency COVID Discharge Exam General: A&Ox3 HENT: NCAT, MMM, EOMI Eyes: PERRLA Neck: Supple, normal range of motion CVS: normal rate and rhythm Resp: b/l good breath sounds Abdomen: Soft, ND/NT Extremities: No c/c/e Neuro: face symmetric, no focal deficit Skin: warm and dry, no rashes/lesions/errythema MSK: no joint swelling/erythema Discharge Data Allergies Allergy/AdvReac Type Severity Reaction Status Date / Time celecoxib [From Celebrex] Allergy Severe Difficulty Verified 09/01/20 18:29 Breathing azithromycin AdvReac Severe Gastrointestinal Verified 09/01/20 18:29 Upset ranitidine AdvReac Intermediate Hives Verified 09/01/20 18:29 Consultations 09/01/20 20:22 ED Decision to Admit Stat 09/02/20 08:00 Consult Cardiology Routine Ordered Studies 09/01/20 17:26 CT head/brain wo con Stat 09/02/20 12:48 CT angio chest PE protocol Urgent Hospital Course (1) Hypertensive urgency: Patient is 79-year-old female who was admitted with a headache. She was found to have hypertensive urgency on admission and Covid positive but asymptomatic. Cardiology was consulted. Her antihypertensive regimen was adjusted. Patient was discharged on ramipril 10 mg twice daily, hydrochlorothiazide 12.5 mg daily and amlodipine 5 mg daily. The day of discharge patient was doing okay. She reported her symptoms have improved. Patient was also noted to have Covid positive. Of note she was Covid positive back in April as well. Patient was on room air. Not having any respiratory symptoms including shortness of breath, cough, chest pain or any palpitations. Patient was discharged in stable condition and follow-up with PCP. Total Time Total Time Spent Total Time Spent (In Minutes): 35 Discharge Plan Discharge Items Patient Disposition: Home - Self-Care Reason For Visit: HEADACHE AND HTN Discharge Diagnosis: headache hypertensive urgency covid-19 Activity: Resume your previous activity Non-emergency contact: Primary Care Provider Call non-emergency contact if: your symptoms worsen Follow-up/Referrals: Natalia Carlos DO [Primary Care Provider] - Diet: Heart Healthy Addtl Attending Provider Instructions: Follow-up with your primary care physician within 1 week. An appointment has been requested. Start taking ramipril 10 mg twice daily, 12.5 mg hydrochlorothiazide daily and amlodipine 5 mg daily. Your test for COVID-19 came back as positive, which means you are infected with the novel coronavirus. We need to continue the following important precautions: Quarantine yourself in your home until: you have had no fever for at least 24 hours (that is 1 full day of no fever without the use of medicine that reduces fevers) AND other symptoms have improved (for example, when your cough or shortness of breath have improved) AND at least 10 days have passed since your symptoms first appeared. Pending Studies at Discharge: No Stand-Alone Forms: My [facility], Smoking Cessation Medications and DC Order Prescriptions: New amlodipine [Norvasc] 5 mg Tablet 5 mg PO QAM 30 Days Qty: 30 RF: 0 hydrochlorothiazide 25 mg Tablet 12.5 mg PO QAM Qty: 30 RF: 0 Continued acetaminophen [Tylenol Extra Strength] 500 mg Tablet 500 mg PO Q6H PRN (Reason: Pain) RF: 0 levocetirizine [Xyzal] 5 mg Tablet 5 mg PO QAM RF: 0 Nexium 24HR 20 mg Tablet,Delayed Release (Dr/Ec) 20 mg PO QAM PRN (Reason: Heartburn) RF: 0 Changed ramipril 10 mg capsule 10 mg PO BID Qty: 60 RF: 0 Discontinued ibuprofen [Advil] 200 mg Tablet 200 mg PO Q6H PRN (Reason: Pain) RF: 0 Discharge Orders: Discharge Order (Routine); Ordered 09/02/20 Ordered By: Adi Paul Admission Data Admit Date/Time: 09/01/20 23:02 Attending Provider: Adi Paul Admit Provider: Orlando Wilson Primary Care Provider: Natalia Carlos Other Providers: Orlando Wilson ; Ap Campbell Other Interventions: Discharge Summary Assessment (RN) Last Done: 09/02/20 15:17
== END 2020-09-02 17:06 | disposition home or self-care (01) | DRG 304 ==
LOC: ED 16:54 → 2S 23:02